=== PATIENT | female | born 1950 | race Caucasian/White ===

== ENCOUNTER 2016-07-17 00:13 | Emergency (ER) | payer OTHER ==
[~2016-07-17] VITALS: Ht 162.6 cm; Wt 66.0 kg
[2016-07-17 00:21] VITALS: BP 149/87; PULSE 67; RESP 22; TEMP 97.8; O2SAT 100
[2016-07-17] MEDS ORDERED: SYNT25TA PO (01:06)
[2016-07-17] MEDS ORDERED: ACYC200C66 PO (01:06)
[2016-07-17] MEDS ORDERED: MORPHINE SULFATE 4 MG/ML INJ IV PUSH ONE (01:45)
--- NOTE | 2016-07-17 02:33 | RADRPT ---
EXAM DATE/TIME: 07/17/2016 01:53 [facility] COMPARISON: No previous studies available for comparison. INDICATIONS : Fall. Right shoulder injury. MEDICAL HISTORY : None. SURGICAL HISTORY : None. ENCOUNTER: Initial ACUITY: 1 day PAIN SCORE: 8/10 LOCATION: Right scapular FINDINGS: No fracture or subluxation seen in the right shoulder. 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 CONCLUSION: Intact right shoulder. Mild to moderate degenerative changes. Christian Villeda MD on July 17, 2016 at 2:31 Board Certified Radiologist. This report was verified electronically.
--- NOTE | 2016-07-17 02:34 | RADRPT ---
EXAM DATE/TIME: 07/17/2016 01:58 [facility] COMPARISON: No previous studies available for comparison. INDICATIONS : Fall. Right shoulder pain. MEDICAL HISTORY : None. SURGICAL HISTORY : None. ENCOUNTER: Initial ACUITY: 1 day PAIN SCORE: 9/10 LOCATION: Right scapular FINDINGS: There is an oblique midshaft fracture of the right clavicle with a few millimeters of superior displa cement and probable slight overlap/foreshortening. CONCLUSION: Mildly displaced and overlapping mid shaft fracture of the right clavicle. Christian Villeda MD on July 17, 2016 at 2:32 Board Certified Radiologist. This report was verified electronically.
--- NOTE | 2016-07-17 03:02 | PD ---
HPI Chief Complaint: Injury Time Seen by Provider: 01:31 Travel History International Travel<30 days: No Contact w/Intl Traveler<30days: No Traveled to known affect area: No History of Present Illness HPI 66-year-old female states she was walking her dog when she fell and landed on her right shoulder. She notes pain to that area. She denies other concurrent complaints. She did not hit her head or black out. Quality pain is sharp. Severity is moderate. Pain is worse with movement. PFSH Past Medical History Immunizations Current: Yes Thyroid Disease: Yes (hypothryoid) Tetanus Vaccination: > 5 Years Influenza Vaccination: No ?: Not Past Surgical History Abdominal Surgery: Yes (gastric bypass) Appendectomy: Yes Tonsillectomy: Yes Social History Alcohol Use: No Tobacco Use: No Substance Use: No Allergies-Medications (Allergen,Severity, Reaction): Coded Allergies: No Known Allergies (Unverified , 07/17/16) Reported Meds & Prescriptions Reported Meds & Active Scripts Active Reported Synthroid (Levothyroxine Sodium) 25 Mcg Tab 25 Mcg PO DAILY Acyclovir 200 Mg Cap 200 Mg PO 5 TIMES A DAY Review of Systems Except as stated in HPI: all other systems reviewed are Neg Physical Exam Narrative General: 66 y/o patient in no apparent distress Skin: trauma noted to right shoulder with mild swelling Eyes: Pupils equal NECK: no pain with range of motion in midline Cardiovascular: Regular rate and rhythm Respiratory: Normal respiratory effort noted, clear to auscultation bilaterally Abdomen: soft, nontender, nondistended Back: No step-offs, midline spine nontender with palpation Extremities: Pain with palpation of right shoulder and clavicle, no lacerations over, neurovascularly intact, no pain with palpation of other joints Neuro: awake, alert, sensation and motor grossly intact Data Data Last Documented VS Vital Signs Date Time Temp Pulse Resp B/P Pulse Ox O2 Delivery O2 Flow Rate FiO2 07/17/16 00:21 97.8 67 22 149/87 100 Room Air Orders Clavicle (07/17/16 ) Morphine Inj (Morphine Inj) (07/17/16 01:45) Iv Access Insert/Monitor (07/17/16 01:32) Shoulder, Limited(2vws) (07/17/16 ) Sling And Swathe (07/17/16 ) MDM Medical Decision Making Medical Screen Exam Complete: Yes Emergency Medical Condition: Yes Medical Record Reviewed: Yes (past history confirm) Interpretation(s) Last 24 hours Impressions Shoulder X-Ray 07/17/16 0000 Signed Impressions: Service Date/Time: Sunday, July 17, 2016 01:53 - CONCLUSION: Intact right shoulder. Mild to moderate degenerative changes. Christian Villeda MD Clavicle X-Ray 07/17/16 0000 Signed Impressions: Service Date/Time: Sunday, July 17, 2016 01:58 - CONCLUSION: Mildly displaced and overlapping mid shaft fracture of the right clavicle. Christian Villeda MD Differential Diagnosis Fracture, strain, sprain Narrative Course Will check x-rays and dose with morphine and reevaluate X-ray with clavicle fracture, sling and swath placed, Patient denies any new complaints and states that they are feeling better. Patient happy with care, all questions answered. Patient knows that follow up is incumbent on them and to return to the emergency room immediately if new or worsening symptoms develop. Patient given strict return precautions, vitals reviewed and are normal , agrees to further workup as an outpatient. Diagnosis Primary Impression: Clavicle fracture Qualified Code: S42.001A - Closed displaced fracture of right clavicle, unspecified part of clavicle, initial encounter Patient Instructions: General Instructions Additional Instructions: Return as needed, follow with an orthopedic physician this week, take pain medication as directed, do not drive while taking Med/Other Pt SpecificInfo: Prescription(s) given Scripts Oxycodone-Acetaminophen (Percocet)5-325 mg Tab1 Tab PO Q6H PRN (PAIN) #15 TAB Prov:Dari Pink MD 07/17/16 Disposition: 01 DISCHARGE HOME Condition: Stable Dari Pink MD Jul 17, 2016 03:02
[2016-07-17] MEDS ORDERED: PERC5TAB12 PO (03:05)
[2016-07-17] MEDS ORDERED: oxyCODONE/ACETAMINOPHEN 5 MG/325 MG TAB PO ONE (03:15)
== END 2016-07-17 03:25 | disposition home or self-care (01) ==
LOC: NEPE 00:13
DX: S42.021A Displaced fracture of shaft of right clavicle, initial encounter for closed fracture (principal); W19.XXXA Unspecified fall, initial encounter; Y93.K1 Activity, walking an animal
CPT/HCPCS: 73000; 73030; 96374; 99283; J2270